=== PATIENT | female | born 1975 | race Caucasian/White ===

== ENCOUNTER 2024-08-07 08:34 | Outpatient (AMB) | payer OTHER, SELFPAY ==
--- NOTE | 2024-08-07 08:40 | A.OFFPC_ITS ---
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 Intake Note: patient here for New patient visit Supervisor Print Line Required: No Is last menstrual period known: No Post menopausal: No Patient : No Allergies No Known Allergies Allergy (Verified 08/07/24 09:01) Medication List - Last Reviewed 08/07/24 by Adrienne Benitez MA amlodipine 10 mg PO DAILY benzoyl peroxide 10% topical bupropion HCl SR 200 mg PO BID dextroamphetamine-amphetamine 20 mg 1 tab PO DAILY dextroamphetamine-amphetamine 25 mg ER 1 cap PO QAM fluoxetine 60 mg PO QAM hydrochlorothiazide 25 mg PO DAILY lorazepam 0.5 mg PO DAILY PRN metoprolol succinate ER (Toprol XL) 50 mg PO BID trazodone 200 mg PO BEDTIME PRN Tobacco use date assessed: 08/07/24 Dental Screening Dental Screen Date: 08/07/24 Did you have a dental visit in the last 12 months?: Yes Did you have a dental problem in the last 6 months where you did not have access to dental care?: No Was dental information given to patient?: Patient has dentist HPI HPI Comments History of Present Illness Details New patient Prior PCP:?Dr Jacque Vernon, [facility] Last office visit/follow-up About a month ago Last CPE: unknown Acute issue(s): Hypertension -She is on amlodipine 10 mg daily and hy drochlorothiazide 25 mg daily Anxiety and depression -She is no Bupropion 200 mg twice daily, fluxetine 60 mg daily, lorazepam 0.5 mg daily as needed, and trazodone 200mg at bedtime as needed ADD -She is on dextroamphetamine-amphetamine 25 mg daily Acne -She is on benzol peroxide She admits to making healthy dietary choices. She has not been exercising due to chronic bilat knee pain. She generally sleeps well She requests weight management with Wegovy to alleviate weight off her knees for pain relief PMHx: Hypertension, chronic back pain, arthritis of both knees, bilateral carpal tunnel syndrome, acne, anxiety, depression, torn meniscus of right knee SurgHx: section, right meniscus repair 03/2024, left thumb ligament repair FHx: Mom: Depression, HTN, HLD. Dad: Alcohol abuse, HTN, HLD, DM, ADD, obesity SocHx: Nonsmoker. Drinks 1 glass of wine once monthly. No recreational drugs Last eye exam was 5 years ago Last mammogram was with [facility] in 12/2023: normal She has not had a colonoscopy. She has an appointment in 08/11/2024 at [facility] for a colonoscopy Last pap smear test was 3 years ago. She notes that she is due for a pap smear test in August She has not been vaccinated for shingles She is up-to-date on the flu vaccine Tetanus vaccine was probably 3 years ago She is followed by a psychiatric, Dr. Shonda Shaffer She is followed by ortho, TAVO Trevizo, at [facility]. She gets cortisone injections to both knees every 6 months [facility] Medical History (Updated 08/07/24 @ 09:51 by Nino Medina CNP) Depression Anxiety Acne Back ache Swelling Arthritis of both knees High blood pressure delivery delivered Carpal tunnel syndrome, bilateral History of torn meniscus of left knee Family History (Updated 08/07/24 @ 09:09 by Adrienne Benitez MA) Father Alcohol abuse High blood pressure High cholesterol Diabetes Cardiovascular disease FH: mental illness Mother FH: mental illness High blood pressure High cholesterol Maternal Aunt FH: mental illness Maternal Grandmother High blood pressure High cholesterol Diabetes FH: mental illness Maternal Grandfather High cholesterol Diabetes Cardiovascular disease FH: mental illness Paternal Grandfather FH: mental illness Social History (Updated 08/07/24 @ 08:54 by Adrienne Benitez MA) Housing: House Patient Tobacco Use Status: Never used Tobacco e-Cigarette/Vaping Use: Never Used Second Hand Smoke Exposure: No Substance Use Type: Marijuana service: Yes Current occupational status: employed 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 1. Little interest or pleasure in doing things: several days 2. Feeling down, depressed, or hopeless: several days 3. Trouble falling or staying asleep, or sleeping too much: more than half the days 4. Feeling tired or having little energy: nearly every day 5. Poor appetite or overeating: not at all 6. Feeling bad about yourself - or that you are a failure or have let yourself or your family down: not at all 7. Trouble concentrating on things, such as reading the newspaper or watching television: several days 8. Moving or speaking so slowly that other people could have noticed. Or the opposite - being so fidgety or restless that you have been moving around a lot more than usual: not at all 9. Thoughts that you would be better off or of hurting yourself in some way: not at all Total score: 8 Depression Screening Interpretation: Positive Depression Screening Done: Yes 92206 - PHQ-9 Billing: Yes Source: Developed by Drs. Phi Oreilly, Neida Bob, Easton Perez and colleagues, with an educational stephanie from [employer]. Thrive Questionnaire Date Thrive assessed: 08/07/24 I am a: Patient What is your living situation today?: I have a steady place to live Within the past 12 months, did the food you bought not last and you didn't have the money to get more?: Never true Within the past 12 months, did you worry whether your food would run out before you got money to buy more?: Never true Do you have trouble paying for medicines?: No Do you have trouble getting transportation to medical appointments?: No Do you have trouble paying your heating and electricity bill?: No Do you have trouble taking care of your child, family member or friend?: No Do you have trouble with day-to-day activities such as bathing, preparing meals, shopping, managing finances, etc.?: I choose not to answer this question Are you currently unemployed and looking for a job?: No Are you interested in more education?: No Please select the resources that you would like help with: None Currently or been in a relationship where the following occur: I choose not to answer THRIVE Score: 0 AUDIT C Alcohol Use Questionnaire (AUDIT-C) 1. How often do you have a drink containing alcohol?: Monthly or less 2. How many drinks containing alcohol do you have on a typical day when you are drinking?: 1 or 2 3. How often do you have six or more drinks on one occasion?: Never Total Score: 1 Score Reviewed/Action Taken: Yes JADYN-7 AMB Questionnaire JADYN-7 Date JADYN - 7 assessed: 08/07/24 Feeling nervous, anxious, or on edge: 1 = Several days Not being able to stop or control worryin = More than half the days Worrying too much about different things: 2 = More than half the days Trouble relaxin = Not at all Being so restless that it is hard to sit still: 0 = Not at all Becoming easily annoyed or irritable: 1 = Several days Feeling afraid as if something awful might happen: 1 = Several days Total JADYN-7 score (0-4 normal; 5-9 mild; 10-14 moderate; 15-21 severe): 7 Source: Developed by Drs. Phi Oreilly, Neida Bob, Easton Perez and colleagues, with an educational stephanie from [employer]. JADYN-7 Assessment Billing JADYN-7 Assessment Tool: JADYN-7 Assessment 46422 Review of Systems Const Details: Denies chills, Denies fatigue, Denies fever(s), Denies headache(s) and Denies weakness HEENT Denies change in vision, Denies dizziness, Denies headache(s), Denies hearing loss, Denies nasal congestion, Denies sinus pain, Denies sinus pressure and Denies sore throat Card Denies chest pain, Denies lightheadedness, Denies dyspnea and Denies other (palpitations) Resp Denies cough, Denies dyspnea and Denies wheezing GI Denies abdominal pain, Denies melena, Denies hematochezia, Denies change in bowel habits, Denies dyspepsia and Denies nausea Denies hematuria and Denies dysuria Musc Reports as per HPI Skin/Breast Denies rash, Denies unusual bruising and Denies wounds Neuro Denies abnormal gait, Denies dizziness, Denies headache(s), Denies memory loss, Denies numbness, Denies Sensory deficit (Neuro), Denies tingling and Denies weakness Psych Denies anxiety, Denies depression and Denies memory loss Endo Denies cold intolerance, Denies fatigue, Denies heat intolerance, Denies polydipsia and Denies polyuria Vernon/Lymph Denies easy bleeding and Denies easy bruising Aller/Immun Denies wheezing Physical exam (Primary Care) Vital Signs: Last Vital Signs Temp 98.0 F 08/07/24 08:54 Pulse 78 08/07/24 08:54 Resp 16 08/07/24 08:54 BP 114/80 08/07/24 08:54 Pulse Ox 95 08/07/24 08:54 Oxygen Delivery Method Room Air 08/07/24 08:54 BMI result Body Mass Index 38.0 Tobacco/Smoking Status: Tobacco use Status Tobacco use date assessed 08/07/24 08/07/24 08:53 Patient Tobacco Use Status Never used Tobacco 08/07/24 08:54 e-Cigarette/Vaping Use Never Used 08/07/24 08:54 PHQ-9: PHQ-9 Score PHQ-9: Total score 8 08/07/24 09:07 Depression Screening Interpretation: Positive Thrive Assessment: Date of Thrive Assessment Date Thrive assessed 08/07/24 08/07/24 08:53 Currently or been in a relationship where the following occur: I choose not to answer Const Other: General: no acute distress, well developed, alert and awake Nutritional Appearance: well nourished Orientation/consciousness: patient oriented x3 HENMT Head: Yes normocephalic and Yes atraumatic Ears: hearing grossly normal bilaterally and TM's normal bilaterally General nose exam: Normal external nose present and Normal nares present Mouth: Normal oral and palatal mucosa present and moist mucous membranes Teeth and gingiva: Upper and lower dentures Throat: Yes oropharynx normal Eyes Pupils: Equal, round and reactive pupils present and Pupil accommodation reflex normal EOM: EOMs intact bilaterally Neck Neck: Yes normal visual inspection, Yes no lymphadenopathy and Yes trachea midline Thyroid: Thyroid normal Carotids: no bruits Lymphatic: no lymphadenopathy noted Chest Chest palpation & inspection: normal inspection of the chest Resp Effort & Inspection: normal respiratory effort Auscultation: clear to auscultation bilaterally Cardio Rate: regular rate Rhythm: regular rhythm Heart sounds: S1 normal heart sound present, S2 normal heart sound present, no gallops, no murmurs and no rubs Bruits: no abdominal aortic bruits and no carotid bruits GI Palpation (GI): No Abdominal aortic bruit present, Soft to palpation, nontender, No hepatosplenomegaly present and No Rebound tenderness present Auscultation: normal bowel sounds General: Yes no CVA tenderness Back/Spine/Pelvis Back: no CVA tenderness Cervical Spine: cervical ROM normal and No Cervical spine tenderness Thoracic/Lumbar Spine: thoraco-lumbar ROM normal, No pain with thoraco-lumbar ROM, No thoracic spinal tenderness and No lumbar spinal tenderness Skin General: warm and dry. Normal skin color. Normal skin turgor Lesions: no lesions Rashes: no rashes Trauma: no lacerations or abrasions Wounds: no wounds Nails: normal Neuro General: patient oriented x3, gait normal and CN's II-XI intact bilaterally Cranial nerves: Yes Equal, round and reactive pupils present Cognition (Neuro): normal cognition Gait exam (Neuro): Normal gait present Motor exam (neuro): 5/5 motor strength present throughout Sensory Exam: No Sensory deficit (Neuro) Deep tendon reflexes (DTR's): Right patellar reflex intensity grade: 2+ and Left patellar reflex intensity grade: 2+ Extrem General: Yes normal to inspection, No edema and No calf tenderness Psych Appearance: grossly normal Affect: normal affect Attitude: cooperative Thought process: Normal thought process present Coding Level of Care Code New Pt Level 3 (60588) New Pt Prev Care 40-64y(00140) Diagnoses Normal physical examination, routine Z00.00 Arthritis of both knees M17.0 Anxiety and depression F41.9; F32.A Eye exam, routine Z01.00 Pap smear for cervical cancer screening Z12.4 Obesity (BMI 30-39.9) E66.9 Vaccine counseling Z71.85 Additional Codes JADYN-7 Assessment Billing - JADYN-7 Assessment Tool: JADYN-7 Assessment 36535 ([id number]) PHQ-9 - 60791 - PHQ-9 Billing: Yes ([id number]) Assessment & Plan Assessment & Plan (1) Normal physical examination, routine: Code(s): Z00.00 - Encounter for general adult medical examination without abnormal findings Category: Medical Plan: Slight functional limitations noted to both knees with squatting Continue current treatment regimen Healthy diet and routine exercise encouraged Advised to get lab work done a few days before her next visit Follow-up in one month for weight management and labs review or sooner with symptoms or concerns Verbalized understanding and agreed with the treatment plan (2) Arthritis of both knees: Code(s): M17.0 - Bilateral primary osteoarthritis of knee Category: Medical Plan: She is followed by ortho and receives cortisone injection every 6 months Continue follow-up with Ortho as planned Warm/cool compresses encouraged Verbalized understanding and agreed with treatment plan (3) Anxiety and depression: Code(s): F41.9 - Anxiety disorder, unspecified; F32.A - Depression, unspecified Category: Medical Plan: PHQ-9 and JADYN-7 scores revealed mild depression and anxiety respectively Continue current treatment regimen and follow-up with psychiatrist as planned Verbalized understanding and agreed with treatment plan (4) Eye exam, routine: Code(s): Z01.00 - Encounter for examination of eyes and vision without abnormal findings Category: Medical Plan: She has history of hyperopia. Her last eye exam was 5 years ago Referred to Ophthalmology for routine eye exam (5) Pap smear for cervical cancer screening: Code(s): Z12.4 - Encounter for screening for malignant neoplasm of cervix Category: Medical Plan: Last pap smear test was 3 years ago. 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 She has been unable to exercise due to chronic bilateral knee pain. She requests Wegovy for weight management to relief some weight off her knees Denies history of pancreatitis or a personal or family history of medullary thyroid cancer or multiple endorcine neoplasia Will start Wegovy 0.25 mg subQ weekly to target with loss. Advised to administer as prescribed. Instructed on the risks, benefits, and potential adverse reactions of the medications. Follow-up in 1 month. Verbalized understanding and agreed with the treatment plan (7) Vaccine counseling: Code(s): Z71.85 - Encounter for immunization safety counseling Category: Medical Plan: She has not been vaccinated for shingles Instructed on importance of vaccination and encouraged to get vaccinated for shingles. She may get the vaccine from the local pharmacy Verbalized understanding and agreed with the plan Orders: Referrals Ophthalmology Referral Z01.00 - Encounter for examination of eyes and vision without abnormal findings [employer] Referral Z12.4 - Encounter for screening for malignant neoplasm of cervix Medications: New semaglutide (weight loss) (Wegovy) administer weeks 1 through 4 of therapy 0.25 mg (0.5 mL) subcut QWEEK 2 mL 0RF
[2024-08-07 08:54] VITALS: BP 114/80; PULSE 78; RESP 16; TEMP 36.7; O2SAT 95; BMI 38.0
== END 2024-08-07 09:44 | disposition home or self-care (01) ==
LOC: HO.HMCFM 08:34
PROVIDERS: PCP Nurse Practitioner Family; Visit Provider Nurse Practitioner Family
DX: Z00.00 Encounter for general adult medical examination without abnormal findings (principal); M17.0 Bilateral primary osteoarthritis of knee; Z68.38 Body mass index [BMI] 38.0-38.9, adult; E66.9 Obesity, unspecified; F41.9 Anxiety disorder, unspecified; F32.A Depression, unspecified; Z71.85 Encounter for immunization safety counseling

== ENCOUNTER → 2024-08-07 08:34 | Outpatient (BNVA) | payer OTHER, SELFPAY | PROVIDERS: Visit Provider Nurse Practitioner Family | DX: M17.0 Bilateral primary osteoarthritis of knee (principal); F41.9 Anxiety disorder, unspecified; F32.A Depression, unspecified; E66.9 Obesity, unspecified | CPT/HCPCS: 96127; 99202 ==

== ENCOUNTER 2024-09-08 09:37 | Outpatient (AMB) | payer OTHER, SELFPAY ==
--- NOTE | 2024-09-08 10:34 | MHC.PC.OV ---
Vital Signs 09/08/24 10:41 BP 160/100 H Blood Pressure Location Lt brachial Position Sitting Intake Visit Reasons: 1 mos wt mgmt, labs review Intake Note: patient here for 1 month follow up on weight MGMT, and lab review Stepdown Nurse Required: No Is last menstrual period known: No Post menopausal: No Patient : No Allergies No Known Allergies Allergy (Verified 09/08/24 14:06) Medication List - Last Reconciled 09/08/24 by Nino Medina CNP amlodipine 10 mg PO DAILY benzoyl peroxide 10% topical bupropion HCl SR 200 mg PO BID dextroamphetamine-amphetamine 20 mg 1 tab PO DAILY dextroamphetamine-amphetamine 25 mg ER 1 cap PO QAM fluoxetine 60 mg PO QAM hydrochlorothiazide 25 mg PO DAILY lorazepam 0.5 mg PO DAILY PRN metoprolol succinate ER (Toprol XL) 50 mg PO BID semaglutide (weight loss) (Wegovy) 0.25 mg (0.5 mL) subcut QWEEK trazodone 200 mg PO BEDTIME PRN Tobacco use date assessed: 09/08/24 Dental Screening Dental Screen Date: 09/08/24 Did you have a dental visit in the last 12 months?: Yes Did you have a dental problem in the last 6 months where you did not have access to dental care?: No Was dental information given to patient?: Patient has dentist HPI HPI Comments History of Present Illness Details 49-year-old female presents for hypertension, weight management, and review of recent lab work. She admits to taking her medications as prescribed without adverse reactions. She notes that she has been making healthy dietary choices. She does not exercise due to significant, constant pain to her lower back and right knee. She notes that the pain from her back radiates to her right thigh. The pain limits her mobility. She attributes the pain to significant weight gain in the past few years despite making healthy dietary changes with history of dietitian guidance. She is followed by Orthopedics. She takes Tylenol as needed. She was prescribed Wegovy 0.25 mg weekly for weight management; however, her health plan declined coverage. She is very agitated and tearful regarding her health plan's decision. She did not get lab work done as planned for this visit. [facility], LAT[facility] Medical History (Updated 09/08/24 @ 10:44 by Mohamed Adam, [employer]) Depression Anxiety Acne Back ache Swelling Arthritis of both knees High blood pressure delivery delivered Carpal tunnel syndrome, bilateral History of torn meniscus of left knee Family History (Updated 08/07/24 @ 09:09 by Adrienne Benitez MA) Father Alcohol abuse High blood pressure High cholesterol Diabetes Cardiovascular disease FH: mental illness Mother FH: mental illness High blood pressure High cholesterol Maternal Aunt FH: mental illness Maternal Grandmother High blood pressure High cholesterol Diabetes FH: mental illness Maternal Grandfather High cholesterol Diabetes Cardiovascular disease FH: mental illness Paternal Grandfather FH: mental illness Social History (Updated 08/07/24 @ 08:54 by Adrienne Benitez MA) Housing: House Patient Tobacco Use Status: Never used Tobacco e-Cigarette/Vaping Use: Never Used Second Hand Smoke Exposure: No Substance Use Type: Marijuana service: Yes Current occupational status: employed Current occupation: [employer] Current occupational exposures/hazards: No Cognitive needs: No Hearing needs: No Vision needs: Yes Questionnaire Thrive Questionnaire Date Thrive assessed: 08/07/24 I am a: Patient What is your living situation today?: I have a steady place to live Within the past 12 months, did the food you bought not last and you didn't have the money to get more?: Never true Within the past 12 months, did you worry whether your food would run out before you got money to buy more?: Never true Do you have trouble paying for medicines?: No Do you have trouble getting transportation to medical appointments?: No Do you have trouble paying your heating and electricity bill?: No Do you have trouble taking care of your child, family member or friend?: No Do you have trouble with day-to-day activities such as bathing, preparing meals, shopping, managing finances, etc.?: I choose not to answer this question Are you currently unemployed and looking for a job?: No Are you interested in more education?: No Please select the resources that you would like help with: None Currently or been in a relationship where the following occur: I choose not to answer THRIVE Score: 0 JADYN-7 AMB Questionnaire JADYN-7 Date JADYN - 7 assessed: 08/07/24 Source: Developed by Drs. Phi Oreilly, Neida Bob, Easton Perez and colleagues, with an educational stephanie from [employer]. Review of Systems Const Details: Const Denies chills, Denies fatigue, Denies fever(s), Denies headache(s) and Denies weakness ENT Denies dizziness and Denies headache(s) Card Denies chest pain, Denies lightheadedness, Denies dyspnea and Denies other (Palpitations) Resp Denies cough, Denies dyspnea, Denies wheezing and Denies other ( shortness of breath) GI Denies abdominal pain, Denies melena, Denies hematochezia, Denies change in bowel habits, Denies dyspepsia and Denies nausea Denies hematuria and Denies dysuria Musc Denies abnormal gait, Denies myalgias, Denies arthralgias, Denies numbness and Denies tingling Skin/Breast Denies rash, Denies unusual bruising and Denies wounds Neuro Denies abnormal gait, Denies dizziness, Denies headache(s), Denies memory loss, Denies numbness, Denies Sensory deficit (Neuro), Denies tingling and Denies weakness Psych Denies anxiety, Denies depression, Denies memory loss Endo Denies cold intolerance, Denies fatigue, Denies heat intolerance, Denies polydipsia and Denies polyuria Aller/Immun Denies wheezing Physical exam (Primary Care) Vital Signs: Last Vital Signs BP 160/100 H 09/08/24 10:41 Tobacco/Smoking Status: Tobacco use Status Tobacco use date assessed 09/08/24 09/08/24 10:35 Patient Tobacco Use Status Never used Tobacco 09/08/24 10:35 e-Cigarette/Vaping Use Never Used 09/08/24 10:35 Thrive Assessment: Date of Thrive Assessment Date Thrive assessed 08/07/24 09/08/24 10:35 Currently or been in a relationship where the following occur: I choose not to answer Const Other: General: no acute distress and well developed Nutritional Appearance: well nourished Orientation/consciousness: patient oriented x3 HENMT Head: Yes normocephalic and Yes atraumatic Eyes General: appearance normal, both eyes and all related structures Pupils: Equal, round and reactive pupils present EOM: EOMs intact bilaterally Resp Effort & Inspection: normal respiratory effort Auscultation: clear to auscultation bilaterally Cardio Rate: regular rate Rhythm: regular rhythm Heart sounds: S1 normal heart sound present, S2 normal heart sound present, no gallops, no murmurs and no rubs GI Palpation (GI): No Abdominal aortic bruit present, Soft to palpation, nontender, No hepatosplenomegaly present and No Rebound tenderness present Auscultation: normal bowel sounds General: Yes no CVA tenderness Back/Spine/Pelvis Back: no CVA tenderness Cervical Spine: cervical ROM normal and No Cervical spine tenderness Thoracic/Lumbar Spine: thoraco-lumbar ROM normal, No pain with thoraco-lumbar ROM, No thoracic spinal tenderness and positive lumbar spinal tenderness Extrem General: Yes normal to inspection, No edema and No calf tenderness Skin General: warm and dry. Normal skin color. Normal skin turgor Neuro General: patient oriented x3, gait normal and no focal neuro deficit Cranial nerves: Yes Equal, round and reactive pupils present Cognition (Neuro): normal cognition Gait exam (Neuro): Normal gait present Sensory Exam: No Sensory deficit (Neuro) Psych Appearance: grossly normal Affect: normal affect Attitude: cooperative Thought process: Normal thought process present Coding Level of Care Code Est Pt Level 4 (98753) Complex EM visit Add On G2211 Diagnoses High blood pressure I10 Obesity (BMI 30-39.9) E66.9 Arthritis of both knees M17.0 Back pain with right-sided sciatica M54.31 Assessment & Plan Assessment & Plan (1) High blood pressure: Code(s): I10 - Essential (primary) hypertension Category: Medical Plan: Resting blood pressure is 160/100, above goal of less than 140/90. Agitation and constant chronic pain may be contributing to her elevated blood pressure. Advised to continue current treatment regimen. Low-sodium diet encouraged. Follow-up in 2 weeks or sooner with symptoms or concerns. Verbalized understanding and agreed with the plan. (2) Obesity (BMI 30-39.9): Code(s): E66.9 - Obesity, unspecified Category: Medical Plan: She currently weighs 211 lb, BMI is 39.9. Last BMI was 38.0. Sedentary lifestyle due to chronic pain may contribute to her recent weight gain. I health plan recently declined coverage for Kamego for weight management and offer initial trial of other medications including phentermine and phenzphetamine which may increase her blood pressure and also interact with dextroamphetamine-amphetamine she is currently taking. Will write an appeal to her health plan for Wegovy. Healthy diet encouraged. Continue current treatment regimen for pain management and follow-up with orthopedics as planned. Verbalized understanding and agreed with treatment plan. (3) Arthritis of both knees: Code(s): M17.0 - Bilateral primary osteoarthritis of knee Category: Medical Plan: Plan as above. (4) Back pain with right-sided sciatica: Code(s): M54.31 - Sciatica, right side Category: Medical Plan: Plan as above.
[2024-09-08 10:41] VITALS: BP 160/100
== END 2024-09-08 10:49 | disposition home or self-care (01) ==
PROVIDERS: PCP Nurse Practitioner Family; Visit Provider Nurse Practitioner Family
DX: I10 Essential (primary) hypertension (principal); E66.9 Obesity, unspecified; Z68.39 Body mass index [BMI] 39.0-39.9, adult; M17.0 Bilateral primary osteoarthritis of knee; M54.31 Sciatica, right side

== ENCOUNTER → 2024-09-08 09:37 | Outpatient (BNVA) | payer OTHER, SELFPAY | PROVIDERS: PCP Nurse Practitioner Family; Visit Provider Nurse Practitioner Family | DX: I10 Essential (primary) hypertension (principal); E66.9 Obesity, unspecified; M17.0 Bilateral primary osteoarthritis of knee; M54.31 Sciatica, right side | CPT/HCPCS: 99212 ==